=== PATIENT | male | born 1990 | race Caucasian/White ===

== ENCOUNTER 2020-06-15 12:59 | Emergency (ER) | payer BC ==
--- NOTE | 2020-06-15 14:40 | EDM.PDOC ---
ED HPI GENERAL MEDICAL PROBLEM - General Chief Complaint: Chest Pain Stated Complaint: CHEST TIGHTNESS Time Seen by Provider: 06/15/20 14:01 Source of Information: Reports: Patient, RN Notes Reviewed History Limitations: Reports: No Limitations - History of Present Illness INITIAL COMMENTS - FREE TEXT/NARRATIVE: Patient is a 29-year-old male presenting to the emergency department with complaints of a 1 week history of intermittent left-sided chest pain associated with shortness of breath. He describes it as a tight sensation in his left chest which is improved by taking a deep breath. He has been having a couple episodes of these each day and states that they last anywhere from 30 minutes to an hour and then resolved. States that he feels short of breath with these e pisodes as well. He denies any known fever, but states he has been chilled. Denies any cough, nasal congestion, nausea, vomiting, diarrhea. He denies any cardiac history. He denies normally feeling anxious, however states he has had a really stressful week at work this week. He has not taken any [id number] medications for relief. Left Chest Pain Score (Numeric/FACES): 5 - Related Data Allergies Allergy/AdvReac Type Severity Reaction Status Date / Time amoxicillin [Amoxicillin] Allergy Unknown Cannot Verified 06/15/20 13:20 Remember Home Meds: Home Meds LORazepam [Ativan] 0.5 mg PO Q8H PRN #10 tab 06/15/20 [Rx] Past Medical History - Past Health History Medical/Surgical History: Denies Medical/Surgical History ED ROS GENERAL - Review of Systems Review Of Systems: See Below Constitutional: Reports: No Symptoms. Denies: Fever, Chills, Weakness HEENT: Reports: No Symptoms Respiratory: Reports: Shortness of Breath. Denies: Cough Cardiovascular: Reports: Chest Pain. Denies: Dyspnea on Exertion, Lightheadedness, Syncope Endocrine: Reports: No Symptoms GI/Abdominal: Reports: No Symptoms : Reports: No Symptoms Musculoskeletal: Reports: No Symptoms Skin: Reports: No Symptoms Neurological: Reports: No Symptoms Psychiatric: Reports: Anxiety Hematologic/Lymphatic: Reports: No Symptoms Immunologic: Reports: No Symptoms ED EXAM, GENERAL - Physical Exam Exam: See Below General Appearance: Alert, WD/WN, No Apparent Distress Respiratory/Chest: No Respiratory Distress, Lungs Clear, Normal Breath Sounds, No Accessory Muscle Use, Chest Non-Tender Cardiovascular: Normal Peripheral Pulses, Regular Rate, Rhythm, No Edema, No Gallop, No JVD, No Murmur, No Rub GI/Abdominal: Normal Bowel Sounds, Soft, Non-Tender, No Organomegaly, No Distention, No Abnormal Bruit, No Mass Neurological: Alert, Oriented, CN II-XII Intact, Normal Cognition, Normal Gait, Normal Reflexes, No Motor/Sensory Deficits Psychiatric: Normal Affect, Normal Mood Skin Exam: Warm, Dry, Intact, Normal Color, No Rash #1 Interpretation EKG Date: 06/15/20 Time: 14:23 Rhythm: NSR Rate (Beats/Min): 48 [place]: Normal P-Wave: Present QRS: Normal ST-T: Normal QT: Normal Course - Vital Signs Last Recorded V/S: Last Vital Signs Temp 98.2 F 06/15/20 13:18 Pulse 59 L 06/15/20 13:18 Resp 17 06/15/20 13:18 BP 129/84 06/15/20 13:18 Pulse Ox 98 06/15/20 13:18 - Orders/Labs/Meds Labs: Laboratory Tests 06/15/20 06/15/20 06/15/20 Range/Units 15:20 15:20 15:20 WBC 4.26 (4.23-9.07) K/mm3 RBC 4.74 (4.63-6.08) M/mm3 Hgb 14.6 (13.7-17.5) gm/dl Hct 43.8 (40.1-51.0) % MCV 92.4 H (79.0-92.2) fl MCH 30.8 (25.7-32.2) pg MCHC 33.3 (32.2-35.5) g/dl RDW Std Deviation 42.9 (35.1-43.9) fL Plt Count 218 (163-337) K/mm3 MPV 9.9 (9.4-12.3) fl Neut % (Auto) 60.6 (34.0-67.9) % Lymph % (Auto) 27.2 (21.8-53.1) % [place] % (Auto) 10.8 (5.3-12.2) % Eos % (Auto) 1.2 (0.8-7.0) Baso % (Auto) 0.2 (0.1-1.2) % Neut # (Auto) 2.58 (1.78-5.38) K/mm3 Lymph # (Auto) 1.16 L (1.32-3.57) K/mm3 [place] # (Auto) 0.46 (0.30-0.82) K/mm3 Eos # (Auto) 0.05 (0.04-0.54) K/mm3 Baso # (Auto) 0.01 (0.01-0.08) K/mm3 D-Dimer, Quantitative < 0.19 L (0.19-0.50) mg/L Sodium 139 (136-145) mEq/L Potassium 4.5 (3.5-5.1) mEq/L Chloride 103 (98-107) mEq/L Carbon Dioxide 28 (21-32) mEq/L Anion Gap 12.5 (5-15) BUN 10 (7-18) mg/dL Creatinine 1.1 (0.7-1.3) mg/dL Est Cr Clr Drug Dosing 122.75 mL/min Estimated GFR (MDRD) > 60 (>60) mL/min BUN/Creatinine Ratio 9.1 L (14-18) Glucose 98 (74-106) mg/dL Calcium 8.9 (8.5-10.1) mg/dL Total Bilirubin 1.1 H (0.2-1.0) mg/dL AST 20 (15-37) U/L ALT 12 L (16-63) U/L Alkaline Phosphatase 75 (46-116) U/L Troponin I < 0.017 (0.00-0.056) ng/mL C-Reactive Protein <0.2 (<1.0) mg/dL Total Protein 6.8 (6.4-8.2) g/dl Albumin 3.9 (3.4-5.0) g/dl Globulin 2.9 gm/dL Albumin/Globulin Ratio 1.3 (1-2) - Re-Assessments/Exams Free Text/Narrative Re-Assessment/Exam: 29-year-old male presents presenting to the emergency department with complaints of increasing frequency of chest pain or shortness of breath over the last week. He states that he has been under quite a bit of stress at work lately. He does feel short of breath with this, however taking a deep breath does relieve it. He denies any significant cardiac history. Has had no fever, chills, nausea, or vomiting. I ordered a cardiac work-up including CBC, CMP, CRP, D-dimer, troponin, EKG, chest x-ray. 06/15/20 17:04 Is work-up was grossly unremarkable. EKG was showed normal sinus rhythm with no acute changes. Chest x-ray was normal. D-dimer troponin was negative and other lab results are normal. Discussed with patient the differential between muscle strain versus anxiety. He feels this is definitely related to anxiety as he states when he was reading about the possible causes of chest pain, he felt his symptoms worsened because he was becoming more anxious. I will provide a short course of Ativan. Recommend that he follow-up in the clinic next week with a primary care provider. Discharge instructions as documented. Departure - Departure Time of Disposition: 17:06 Disposition: Home, Self-Care 01 Condition: Good Clinical Impression: Atypical chest pain, Anxiety Prescriptions: LORazepam [Ativan] 0.5 mg PO Q8H PRN #10 tab PRN Reason: Anxiety Instructions: Nonspecific Chest Pain, Adult, Managing Anxiety, Adult Referrals: PCP,None [Primary Care Provider] - Forms: ED Department Discharge Additional Instructions: You were seen in the emergency department today for intermittent chest pain and shortness of breath of the course the last week. Work-up included blood work, an EKG of your heart, and a chest x-ray. Your heart work-up was found to be normal. You are not having a heart attack and you do not have blood clots in your lungs. As we discussed, this could be related to anxiety as you state you have been under increased stress this week. A prescription for Ativan for anxiety has been sent to your pharmacy. Take this medication as prescribed. As we discussed, this is not something that you should be on long-term, therefore if you feel that you need long-term treatment of your anxiety, recommend that you follow-up in the clinic to discuss alternative medications. Return to the ER as needed. Sepsis Event Note (ED) - Evaluation Sepsis Screening Result: No Definite Risk - Focused Exam Vital Signs: Vital Signs Temp Pulse Resp BP Pulse Ox 06/15/20 13:18 98.2 F 59 L 17 129/84 98
--- NOTE | 2020-06-15 15:00 | CR ---
PROCEDURE INFORMATION: Exam: XR Chest, 1 View Exam date and time: 06/15/2020 2:09 PM Age: 29 years old Clinical indication: Shortness of breath; Chest pain TECHNIQUE: Imaging protocol: XR of the chest Views: 1 view. COMPARISON: No relevant prior studies available. FINDINGS: Lungs: Unremarkable. No consolidation. Pleural space: Unremarkable. No pleural effusion. No pneumothorax. Heart/Mediastinum: Unremarkable. No cardiomegaly. Bones/joints: Unremarkable. IMPRESSION: No acute findings. Thank you for allowing us to participate in the care of your patient. Dictated and Authenticated by: Nate Hernandez MD 06/15/2020 3:46 PM Central Time ([place] & [place]) [facility]
== END 2020-06-15 17:20 | disposition home or self-care (01) ==
LOC: JD.ED 12:59
DX: F41.9 Anxiety disorder, unspecified (principal); Z88.1 Allergy status to other antibiotic agents
CPT/HCPCS: 36415; 71045; 71045-26; 80053; 84484; 85025; 85379; 86140; 93005; 99285-25